=== PATIENT | male | born 1960 | race Two or more races ===

== ENCOUNTER 2020-07-11 12:43 | Emergency (ER) | payer OTHER ==
[~2020-07-11] VITALS: Ht 170.2 cm; Wt 105.0 kg
[2020-07-11] MEDS ORDERED: MORPHINE SULFATE 4 MG/ML, 1ML ONE ×2 (13:19→14:30)
[2020-07-11] MEDS: MORPHINE SULFATE 4 MG/ML, 1ML IVPush PRN ×2 (13:21→14:33)
--- NOTE | 2020-07-11 13:23 | NUR ---
MEDS ADMIN PER OCT,. LAB AT BEDSIDE,.
[2020-07-11] MEDS ORDERED: SODIUM CHLORIDE FLUSH 10ML SYR IVF ONE (13:30)
--- NOTE | 2020-07-11 13:30 | NUR ---
PT AMBULATED TO RESTROOM WITH STEADY GAIT TO PROVIDE URINE SAMPLE. UA COLLECTED AND SENT TO LAB. PT TO CT.
[2020-07-11 13:33] LABS: BASOPHILS % (AUTO) 1 % (0-1); EOSINOPHILS % (AUTO) 0 % (1-7); LYMPHOCYTES % (AUTO) 13 % (22-44); MD NO; MEAN CORPUSCULAR HEMOGLOBIN 33.9 pg (27.5-34.5); MEAN CORPUSCULAR HGB CONC 34.3 g/dL (33.2-36.2); MONOCYTES % (AUTO) 5 % (2-9); NEUTROPHILS % (AUTO) 81 % (42-75); PLATELET COUNT 134 x10^3/uL (130-400); RED BLOOD COUNT 4.54 x10^6/uL (4.38-5.82); RED CELL DISTRIBUTION WIDTH 13.2 % (9.4-14.8)
[2020-07-11 13:44] LABS: ALBUMIN 3.8 g/dL (3.4-5.0); ANION GAP 5 mmol/L (5-15); CALCIUM 8.6 mg/dL (8.5-10.1); CHLORIDE 114 mmol/L (98-107)
[2020-07-11 13:47] LABS: ALANINE AMINOTRANSFERASE 26 U/L (12-78); ALKALINE PHOSPHATASE 73 U/L (45-117); BILIRUBIN,TOTAL 0.4 mg/dL (0.2-1.0); CREATININE 1.16 mg/dL (0.7-1.3); TOTAL PROTEIN 7.2 g/dL (6.4-8.2)
[2020-07-11 13:50] LABS: MICROSCOPIC INDICATED
[2020-07-11] MEDS ORDERED: KETOROLAC 30 MG/1 ML ONE (14:20)
[2020-07-11 14:23] VITALS: BP 136/69
[2020-07-11] MEDS ORDERED: KETOROLAC 30 MG/1 ML IVPush ONE (14:30)
--- NOTE | 2020-07-11 14:40 | NUR ---
ALL RESULTS ARE BACK AT THIS TIME. CHART UP FOR RECHECK.
== END 2020-07-11 15:51 | disposition home or self-care (01) ==
LOC: ED 13:13
DX: N13.2 Hydronephrosis with renal and ureteral calculous obstruction (principal); N23 Unspecified renal colic; R11.0 Nausea
CPT/HCPCS: 36415; 74176; 80053; 81001; 83690; 85025; 87086; 93005; 96374; 96375; 96376; 99285; J1885; J2270